=== PATIENT | male | born 1945 | race American Indian/Alaskan Native ===

== ENCOUNTER 2016-08-22 07:11 | Outpatient (CLI) | payer MEDICARE ==
--- NOTE | 2016-08-22 08:56 | Magnetic Resonance Report ---
MRI OF THE BRAIN WITHOUT CONTRAST: HISTORY: Chronic headache PROCEDURE: Multiplanar, multisequence MR imaging of the brain without IV contrast was performed. FINDINGS: Mild diffuse cortical volume loss is evident. Mild nonspecific chronic white matter changes are identified which is most likely secondary to chronic microvascular disease. Otherwise, the brain parenchyma signal intensity and its pereira-white interface are within normal limits on all sequences. No evidence for acute ischemia, hemorrhage or mass. No chronic infarct or extra-axial fluid collection. The midline structures are central. The basal cisterns are patent. Normal ventricular size. The orbital cavities and sella turcica demonstrate no abnormality. The visualized paranasal sinuses and mastoid air cells are well aerated. IMPRESSION: Mild volume loss and nonspecific chronic white matter changes. No acute intracranial process identified.
== END 2016-08-22 07:12 | disposition home or self-care (01) ==
LOC: MRI 07:11
PROVIDERS: ATTEND Internal Medicine
DX: R51 Headache (principal)
CPT/HCPCS: 70551